=== PATIENT | female | born 1940 | race Caucasian/White ===

== ENCOUNTER 2016-12-16 03:26 | Observation (INO) | payer MEDICARE ==
--- NOTE | ~2016-12-16 | HP ---
History And Physical [facility] [id number] [place]. [address] NAME: MAIN SCHMIDT : 40 STATUS : ADM Briseyda PAT#: [id number] AGE: 76 ADM/REG DATE : 12/16/16 MR#: [id number] REPORT SERV DATE: 12/16/16 DICTATED BY: MARIAMA RICH DATE: 12/16/16 REPORT STATUS : Draft TRANSCRIBED BY: VIRA DATE: 12/16/16 DATE OF ADMISSION: 12/16/2016 CHIEF COMPLAINT: A 76-year-old female presenting with increasing abdominal pain, nausea, and an unintentional overdose of Phenergan. HISTORY OF PRESENT ILLNESS: The patient's history was obtained through a limited interview with the patient and interview with her son and review of [employer] [facility] [employer] medical records. The patient is on chronic narcotic pain medicine; chronic benzodiazepine, anxiety medicine; and chronic Phenergan for nausea. Unfortunately, over the last three or four months, it has been noted that the patient has had to have increasing doses of her medicine (at least according to son) to treat overall pain, nausea, and problems, in particular, she has had increasing abdominal discomfort that comes and goes. At least over the last two nights, the patient has been complaining of abdominal pain, poorly treated with her home narcotic regimen. She is unable at this time to describe a precise location, quality, or severity of that pain because of altered mental status, but does admit that it hurts. She denies any other pain at this time. No back pain. No headache. No chest pain. She has had significant nausea and a few episodes of vomiting in the last two days. Then, on the night prior to admission (probably around 10:00 p.m.), the patient was with another person in the home and there was a witnessed consumption of six doses of Phenergan (and it was uncertain if she had already taken Ativan and Percocet for the night). There was great concern about her increasing abdominal pain and her desire to take so many Phenergan to control nausea, so she was brought to the hospital. By the time she came to the emergency department, she was showing severe agitation, restlessness, and confusion. These were apparently new onset since she consumed this six doses of Phenergan. No fevers or chills. No shortness of breath. No cough. There is a denial of confusion prior to her taking the Phenergan. REVIEW OF SYSTEMS: Otherwise, a 14-point review of systems was obtained was negative, although could question validity in light of the patient's ability to answer for herself and her significant confusion. PAST MEDICAL HISTORY: 1. Chronic pain management, on benzodiazepines, narcotics, and Phenergan. 2. Right parietal stroke. 3. Depression. History And Physical [address] [address] NAME: MAIN SCHMIDT : 40 STATUS : ADM Briseyda PAT#: [id number] AGE: 76 ADM/REG DATE : 12/16/16 MR#: [id number] REPORT SERV DATE: 12/16/16 DICTATED BY: MARIAMA RICH DATE: 12/16/16 REPORT STATUS : Draft TRANSCRIBED BY: VIRA DATE: 12/16/16 4. Vertigo. 5. Hyperparathyroidism? with possibility of a history of elevated calcium? 6. Essential tremor. 7. Gastritis, seen by Dr. Dash. 8. A severe case of pancreatitis in 2004, which led to the patient being in critical condition at that time with PEG tube placement, tracheostomy, and pneumoperitoneum, but it has since resolved with reversal of trach and PEG. 9. Pneumonia. 10.Fatty liver disease. 11.Rheumatic fever as a child. 12.Diverticulitis. 13.MRSA infection. PAST SURGICAL HISTORY: 1. Spine surgery x3. 2. Left arm fracture surgery. 3. Hysterectomy. 4. Appendectomy. ALLERGIES: TO ERYTHROMYCIN, STREPTOMYCIN, FLAGYL, PENICILLIN, AND SULFA. SOCIAL HISTORY: No tobacco abuse. Quit alcohol in 2004. She is a , lives in [place], [place], has two sons. Ambulates with a walker. FAMILY HISTORY: Mother with tuberculosis. Father with lung cancer. A strong family history of COPD and heart disease. CURRENT MEDICATIONS: Unknown at this time, but it is believed that the patient at least takes doses of Percocet, Ativan, and Phenergan at home. PHYSICAL EXAMINATION: VITAL SIGNS: Temperature 97.0, pulse 123, blood pressure , respiratory rate 20, and O2 98% on room air. GENERAL: An ill-appearing female. She just seems distressed from her mental status, which is quite confused, irritable, and agitated, but does not seem to be expressing too much agitation from pain or distress from other problems. HEENT: Pupils are equal, round, and reactive to light. No conjunctival pallor. No scleral icterus. Nares are patent. Oropharynx is clear of obstruction. Moist mucous membranes. NECK: Trachea midline. No thyromegaly. LYMPH: No cervical lymphadenopathy. No supraclavicular lymphadenopathy. No inguinal lymphadenopathy. RESPIRATORY: Clear to auscultation at bases. No wheezes, rales, or rhonchi. Normal respiratory effort. CARDIOVASCULAR: Tachycardic. Regular rhythm. No murmurs, rubs, or gallops. No current extremity edema is appreciated. ABDOMEN: Diffusely tender by exam, but nonfocal. No guarding. No rebound. There seemed to be slightly distended with tympanic resonance. No hepatosplenomegaly. History And Physical [address] [address] NAME: MAIN SCHMIDT : 40 STATUS : ADM Briseyda PAT#: [id number] AGE: 76 ADM/REG DATE : 12/16/16 MR#: [id number] REPORT SERV DATE: 12/16/16 DICTATED BY: MARIAMA RICH DATE: 12/16/16 REPORT STATUS : Draft TRANSCRIBED BY: VIRA DATE: 12/16/16 DERMATOLOGIC: Warm and dry extremities. No pallor. No cyanosis. PSYCHIATRIC: An irritable affect and mood. She is alert, but agitated, disoriented to time, location, and her history. LABORATORY DATA: White blood cell count 5.2, hemoglobin 14, hematocrit 40, and platelets 176. Sodium 142, potassium 3.5, chloride 104, bicarb 25, BUN 11, creatinine 0.86, and glucose 117. Urinalysis shows large leukocyte esterase, positive nitrites, and 73 white blood cells. STUDIES: 1. EKG by my own evaluation shows sinus rhythm. 2. CT scan of the abdomen demonstrated [id number] ileus and distention of the bladder. ASSESSMENT AND PLAN: 1. Urinary tract infection. Check urine culture. Place on IV Rocephin. 2. Urinary obstruction. Because of the patient's agitation, I was concerned about placing a Torres catheter and leaving it indwelling; therefore, I will like to do intermittent catheterization with an emptying of the bladder done here in the emergency department and then for followup bladder scans to check postvoid residual for possible future intermittent catheterization. 3. Unintentional Phenergan overdose. We will monitor closely. 4. Chronic pain management. We will need to make certain that the patient does not go into some kind of withdrawal, but at this time, I am holding oral medications and using low-dose p.r.n. IV narcotics and IV benzodiazepines as needed. 5. Encephalopathy, likely from overuse of Phenergan and possibly other chronic pain and anxiety medicines. The patient will have a sitter. We will monitor closely through the day. KPL/MODL Mariama Rich M.D. / [id number] CC: Liliana Travis M.D. James Scott Manton, M.D.
--- NOTE | ~2016-12-16 | DS ---
Discharge Summary [facility] [address] [place]. [address] NAME: MAIN SCHMIDT : 40 STATUS : DIS Briseyda PAT#: [id number] AGE: 76 ADM/REG DATE : 12/16/16 MR#: [id number] REPORT SERV DATE: 12/19/16 DICTATED BY: ELENI ERICKSON DATE: 12/18/16 REPORT STATUS : Draft TRANSCRIBED BY: MODL DATE: 12/18/16 ADMISSION DATE: 12/16/2016 DISCHARGE DATE: 12/18/2016 The patient is a 76-year-old female with a history of depression, right parietal stroke, who presented to the hospital with a complaint of abdominal pain, nausea, and unintentional overdose of Phenergan. For further details please refer to H and P dictated by Dr. Yuan Rod on 12/16/2016. HOSPITAL COURSE: Upon presentation to the hospital given her presenting complaints the patient was admitted under Hospitalist Service for observation. Also workup included urine culture which came back positive. The patient was started on IV antibiotics with gradual improvement in her symptoms. Also given her presenting complaints a CT abdomen and pelvis was obtained which was consistent with gastroenteritis. The patient initially given her presenting complaint of Phenergan overdose, there was concern that the patient may possibly harm herself prompting an order to be placed for a sitter. During her hospital course, it was determined that overdose was unintentional and this sitter have subsequently been D/C'd. Also for her nausea, the patient was started on Phenergan, medication was scheduled with resolution of her symptoms. Of note, her nausea is chronic as she is scheduled to see a mold mechanic as outpatient for further management. Given her hemodynamic instability and given resolution of her presenting complaints the patient will be discharged to follow up with her primary care and her mold mechanic. Plan has been discussed with the patient who voices understanding and is agreeable with this plan. DISCHARGE PHYSICAL EXAMINATION: VITAL SIGNS: Blood pressure 161/73, pulse of 79, respirations 18, and O2 saturation 94% on room air. GENERAL: The patient lying in bed, appeared very pleasant this morning in no acute distress. Speaking in full sentences. HEENT: Normocephalic and atraumatic. Extraocular motors intact. Moist oral mucosa. NECK: Trachea midline and symmetric. No JVD noted. No thyromegaly present. CHEST: Nontender to palpation. CARDIOVASCULAR: Regular rate and rhythm. S1, S2. No murmurs, rubs, or gallops. LUNGS: Anterior lung samaniego clear to auscultation bilaterally. The patient had normal respiratory effort. ABDOMEN: Positive bowel sounds. Nontender. Nondistended. EXTREMITIES: No cyanosis, no clubbing, no edema. NEUROLOGIC: The patient was alert and oriented. DISCHARGE DIAGNOSES: 1. Urinary tract infection. 2. Urinary retention. 3. Phenergan overdose. 4. Vomiting. 5. Hypertension. 6. Encephalopathy. 7. Chronic pain management. Discharge Summary [address] [address] NAME: MAIN SCHMIDT : 40 STATUS : DIS Briseyda PAT#: [id number] AGE: 76 ADM/REG DATE : 12/16/16 MR#: [id number] REPORT SERV DATE: 12/19/16 DICTATED BY: ELENI ERICKSON DATE: 12/18/16 REPORT STATUS : Draft TRANSCRIBED BY: VIRA DATE: 12/18/16 DISCHARGE MEDICATIONS: The patient's home medications were continued which include: 1. Celebrex 200 mg p.o. daily. 2. Plavix 75 mg p.o. daily. 3. Gabapentin 400 mg p.o. three times a day. 4. Phenergan 25 mg p.o. q.6 hours p.r.n. 5. Ativan 3 mg p.o. at bedtime. 6. Hydrochlorothiazide 25 mg p.o. daily. 7. Bactrim Double Strength, one tablet p.o. b.i.d. for five days. DISPOSITION: The patient will be discharged home. DIET: As tolerated. ACTIVITY: As tolerated. Greater than 30 minutes were spent coordinating discharge, providing counseling, dictation of note, medication reconciliation. HAYDEN/VIRA Eleni Erickson MD / [id number] CC: MD Eleni Plummer M.D.
--- NOTE | ~2016-12-16 | DS ---
Discharge Summary [facility] [address] [facility] [place]. [address] NAME: MAIN SCHMIDT : 40 STATUS : DIS Briseyda PAT#: [id number] AGE: 76 ADM/REG DATE : 12/16/16 MR#: [id number] REPORT SERV DATE: 12/19/16 DICTATED BY: ELENI ERICKSON DATE: 12/18/16 REPORT STATUS : Draft TRANSCRIBED BY: VIRA DATE: 12/18/16 ADMISSION DATE: 12/16/2016 DISCHARGE DATE: 12/18/2016 I have already dictated this note, but for some reason I was not given a work number after dictation. However, briefly the patient is a 76-year-old female, who presented to the emergency room with a complaint of nausea, vomiting, and accidental Phenergan overdose. For further details please refer to H and P dictated by Dr. Yuan Rod on 12/16/2016. HOSPITAL COURSE: Upon presentation to the hospital the patient was admitted under the Hospitalist Service. The patient has been observed overnight, she has remained hemodynamically stable. During her hospital course, the patient was noted to have a UTI, started on IV antibiotics. Per sensitivity results, the patient has been transitioned to Bactrim Double Strength p.o. for a period of five days. Given her hemodynamic stable the patient will be discharged home today. DISCHARGE MEDICATIONS: Her home medications were continued with the addition of Bactrim Double Strength for a total five days and hydrochlorothiazide for hypertension. DISPOSITION: The patient will be discharged home. ACTIVITY: As tolerated. DIET: As tolerated. The patient has been instructed to follow up with her yarn dumper and primary care physician as outpatient. KEVIN Eleni Erickson MD / [id number] CC: MD Eleni Plummer M.D.
[2016-12-16 03:11] LABS: BASOPHILS 0.2 %; BASOPHILS ABSOLUTE 0.01 10/3/uL (0.0-0.16); EOSINOPHILS 1.2 %; EOSINOPHILS ABSOLUTE 0.06 10/3/uL (0.0-0.53); ER CBC TAT 0 Hrs 06 MinsNP; HEMATOCRIT 40.4 % (36.0-48.0); HEMOGLOBIN 13.6 g/dL (12.0-16.0); IMMATURE GRANULOCYTES 0.2 %; IMMATURE GRANULOCYTES ABSOLUTE 0.01 10/3/uL (0.0-0.11); LYMPHOCYTES 21.7 %; LYMPHOCYTES ABSOLUTE 1.13 10/3/uL (0.67-4.30); MANUAL DIFF NO %; MEAN CORPUS HGB CONC 33.7 g/dL (32.0-36.0); MEAN CORPUSCULAR HEMOGLOB 32.9 pg (26.0-34.0); MEAN CORPUSCULAR VOLUME 97.6 fL (80-100); MEAN PLATELET VOLUME 10.7 fL (9.2-13.0); MONOCYTES 4.2 %; MONOCYTES ABSOLUTE 0.22 10/3/uL (0.21-1.20); NEUTROPHILS 72.5 %; NEUTROPHILS ABSOLUTE 3.77 10/3/uL (2.02-8.40); PLATELET COUNT 176 10/3/uL (150-400); RBC DISTRIBUTION WIDTH 12.9 % (12.0-16.0); RED CELL COUNT 4.14 10/6/uL (4.0-5.6); WHITE BLOOD CELLS 5.2 10/3/uL (4.5-10.5)
[~2016-12-16 03:26] MED LIST: ALLEGRA180 PO; ASA5GR PO; ASAB PO; ATIVAN2 MG PO; ATV1 PO; BENTYL10 PO; BONIVA3I IV; CELEBREX2 PO; CENTRUM TAB1 TAB PO; CHLORZOXAZON500 MG PO; CIP2 PO; DRAMAMINE25 MG PO; ENDOCET1 TA3 PO; ESTRACE VAG0.1 MG/GM V; FLEXERIL5 MG PO; I10 PO; MCZ25 PO; MEGACEUDL PO; MIRALAXPKT PO; MSCONT15 PO; MSIMMREL PO; NEUR300 PO; NEUR600 PO; PLAVIX PO; PR25 PO; PRILO PO; PROTONIX PO; ROZEREM8 MG PO; STOOL SOFTEN100 MG PO; TRAZ100 PO; TYLENOL ARTH650 MG PO; VESICARE5 PO; VIIBRYD40 MG PO; ZOCOR10 PO; [UNRECOGNIZED DRUG - OTHER] TOP
[2016-12-16 03:28] LABS: A/G RATIO 1.1 (0.7-1.9); ALBUMIN 3.9 G/DL (3.5-5.0); ALKALINE PHOSPHATASE 90 U/L (45-117); CALCIUM, SERUM 10.2 MG/DL (8.5-10.4); CHLORIDE, SERUM 104 MMOL/L (96-112); CO2 (CARBON DIOXIDE) 25 MMOL/L (24-34); CREATININE 0.86 MG/DL (0.55-1.02); GFR AFRICAN AMERICAN 76 ML/MIN (>=60); GFR NON AFRICAN AMERICAN 66 ML/MIN (>=60); GLOBULIN 3.4 G/DL (2.5-4.1); GLUCOSE, SERUM 117 MG/DL (60-99); SGOT(AST) 16 U/L (5-40); SGPT(ALT) 7 U/L (5-65); SODIUM, SERUM 142 MMOL/L (135-148); TOTAL PROTEIN 7.3 G/DL (6.0-8.5)
[2016-12-16 03:29] LABS: BUN (BLOOD UREA NITROGEN) 11 MG/DL (6-23); POTASSIUM, SERUM 3.5 MMOL/L (3.5-5.3)
[2016-12-16 04:47] LABS: ASCORBIC ACID (UR NOT ORDER) NEG (NEG); BILIRUBIN, URINE NEGATIVE (NEG); ER URINALYSIS TAT 0 Hrs 00 Mins; KETONE, URINE NEGATIVE (NEG); LEUKOCYTE ESTERASE(NOT OR LARGE (NEG); NITRITE (URINE) POS (NEG); WBC (NOT ORDERED) (RFLEX) 73 (0-5)
[2016-12-16] MEDS ORDERED: *UNABLE2 (05:13)
[2016-12-16] MEDS ORDERED: LOM PO (07:59)
[2016-12-16] MEDS ORDERED: PLAVIX PO (07:59)
[2016-12-16] MEDS ORDERED: PERCOCET 10/3251 TAB PO (07:59)
[2016-12-16] MEDS ORDERED: MSCONT15 PO (07:59)
[2016-12-16] MEDS ORDERED: ATV1 PO (08:00)
[2016-12-16] MEDS ORDERED: NEUR400 PO (08:00)
[2016-12-16] MEDS ORDERED: PR25 PO (08:00)
[2016-12-16] MEDS ORDERED: TRAZODONE150 MG PO (08:01)
[2016-12-16] MEDS ORDERED: CELEBREX2 PO (11:05)
[2016-12-16] MEDS ORDERED: TRINTELLIX10 MG PO (11:06)
[2016-12-16 12:58] LABS: BASOPHILS 0.1 %; BASOPHILS ABSOLUTE 0.01 10/3/uL (0.0-0.16); EOSINOPHILS 0.1 %; EOSINOPHILS ABSOLUTE 0.01 10/3/uL (0.0-0.53); HEMATOCRIT 37.4 % (36.0-48.0); HEMOGLOBIN 12.5 g/dL (12.0-16.0); IMMATURE GRANULOCYTES 0.2 %; IMMATURE GRANULOCYTES ABSOLUTE 0.02 10/3/uL (0.0-0.11); LYMPHOCYTES 8.1 %; LYMPHOCYTES ABSOLUTE 0.69 10/3/uL (0.67-4.30); MANUAL DIFF NO %; MEAN CORPUS HGB CONC 33.4 g/dL (32.0-36.0); MEAN CORPUSCULAR HEMOGLOB 32.6 pg (26.0-34.0); MEAN CORPUSCULAR VOLUME 97.7 fL (80-100); MONOCYTES ABSOLUTE 0.26 10/3/uL (0.21-1.20); NEUTROPHILS 88.5 %; NEUTROPHILS ABSOLUTE 7.55 10/3/uL (2.02-8.40); PLATELET COUNT 172 10/3/uL (150-400); RBC DISTRIBUTION WIDTH 12.8 % (12.0-16.0); RED CELL COUNT 3.83 10/6/uL (4.0-5.6); WHITE BLOOD CELLS 8.5 10/3/uL (4.5-10.5)
[2016-12-16 13:06] LABS: INTERNATIONAL NORMAL RATI 1.2 UNITS (-); PARTIAL THROMBO TIME 28.8 SEC (22.5-37.2); PROTIME (NOT ORD) 14.8 SEC (12.0-14.5)
[2016-12-16 13:19] LABS: A/G RATIO 1.1 (0.7-1.9); ALBUMIN 3.4 G/DL (3.5-5.0); BUN (BLOOD UREA NITROGEN) 8 MG/DL (6-23); CHLORIDE, SERUM 107 MMOL/L (96-112); CO2 (CARBON DIOXIDE) 24 MMOL/L (24-34); CREATININE 0.64 MG/DL (0.55-1.02); GFR AFRICAN AMERICAN 100 ML/MIN (>=60); GFR NON AFRICAN AMERICAN 87 ML/MIN (>=60); GLUCOSE, SERUM 105 MG/DL (60-99); POTASSIUM, SERUM 3.5 MMOL/L (3.5-5.3); SGOT(AST) 62 U/L (5-40); SGPT(ALT) 17 U/L (5-65); SODIUM, SERUM 142 MMOL/L (135-148); TOTAL BILIRUBIN 0.6 MG/DL (0-1.2); TOTAL PROTEIN 6.4 G/DL (6.0-8.5)
[2016-12-16 13:20] LABS: ALKALINE PHOSPHATASE 75 U/L (45-117); CALCIUM, SERUM 9.2 MG/DL (8.5-10.4)
[2016-12-17 06:14] LABS: BUN (BLOOD UREA NITROGEN) 6 MG/DL (6-23); CALCIUM, SERUM 9.9 MG/DL (8.5-10.4); CHLORIDE, SERUM 108 MMOL/L (96-112); CO2 (CARBON DIOXIDE) 23 MMOL/L (24-34); CREATININE 0.65 MG/DL (0.55-1.02); GFR AFRICAN AMERICAN 100 ML/MIN (>=60); GFR NON AFRICAN AMERICAN 86 ML/MIN (>=60); GLUCOSE, SERUM 96 MG/DL (60-99); POTASSIUM, SERUM 3.6 MMOL/L (3.5-5.3); SODIUM, SERUM 143 MMOL/L (135-148)
[2016-12-18] MEDS ORDERED: BACDS PO (10:14)
[2016-12-18] MEDS ORDERED: HYDROCHLOROT25 MG PO (10:15)
== END 2016-12-18 11:32 | disposition home or self-care (01) ==
LOC: ER 03:26 → CDU1 04:49 → CDU2 06:55
PROVIDERS: Hospitalist; Specialist
DX: N39.0 Urinary tract infection, site not specified (principal); T42.6X1A Poisoning by other antiepileptic and sedative-hypnotic drugs, accidental (unintentional), initial encounter; R33.9 Retention of urine, unspecified; F32.9 Major depressive disorder, single episode, unspecified; G93.40 Encephalopathy, unspecified; G89.29 Other chronic pain; K85.90 Acute pancreatitis without necrosis or infection, unspecified; K76.0 Fatty (change of) liver, not elsewhere classified; Z86.73 Personal history of transient ischemic attack (TIA), and cerebral infarction without residual deficits; Z87.01 Personal history of pneumonia (recurrent); Z86.14 Personal history of Methicillin resistant Staphylococcus aureus infection; Z90.49 Acquired absence of other specified parts of digestive tract; Z90.710 Acquired absence of both cervix and uterus; Z98.890 Other specified postprocedural states; Z88.1 Allergy status to other antibiotic agents; Z88.0 Allergy status to penicillin; Z88.2 Allergy status to sulfonamides; Z88.8 Allergy status to other drugs, medicaments and biological substances; Z79.899 Other long term (current) drug therapy
CPT/HCPCS: 74176; 80048; 80053; 81001; 83690; 83735; 84443; 85025; 85610; 85730; 87077; 87086; 87186; 93005; 96372; 96374; 96375; 96376; 99285; A9270-GY; G0378; J2405